=== PATIENT | female | born 1985 | race Caucasian/White ===

== ENCOUNTER 2019-01-05 22:23 | Observation (INO) | payer OTHER ==
[~2019-01-05] VITALS: Ht 167.6 cm; Wt 83.7 kg
--- NOTE | 2019-01-05 22:54 | NUR ---
UA COLLECTED AND SENT TO LAB.
[2019-01-05 23:12] LABS: MICROSCOPIC INDICATED
[2019-01-05 23:13] LABS: BASOPHILS # (AUTO) 0.04 x10^3/uL (0-0.1); BASOPHILS % (AUTO) 0 % (0-1); EOSINOPHILS # (AUTO) 0.04 x10^3/uL (0-0.4); EOSINOPHILS % (AUTO) 0 % (1-7); LYMPHOCYTES # (AUTO) 1.98 x10^3/uL (1-3.4); LYMPHOCYTES % (AUTO) 20 % (22-44); MD NO; MEAN CORPUSCULAR HEMOGLOBIN 29.9 pg (27.0-34.8); MEAN CORPUSCULAR HGB CONC 33.9 g/dL (32.4-35.8); MEAN CORPUSCULAR VOLUME 88.2 fL (80-100); MONOCYTES # (AUTO) 0.74 x10^3/uL (0.2-0.8); MONOCYTES % (AUTO) 7 % (2-9); NEUTROPHILS # (AUTO) 7.19 x10^3/uL (1.8-6.8); NEUTROPHILS % (AUTO) 72 % (42-75); PLATELET COUNT 259 x10^3/uL (130-400); RED BLOOD COUNT 4.26 x10^6/uL (3.82-5.3); RED CELL DISTRIBUTION WIDTH 13.4 % (9.6-15.2)
[2019-01-05 23:25] LABS: ALANINE AMINOTRANSFERASE 45 U/L (12-78); ALBUMIN 3.5 g/dL (3.4-5.0); ANION GAP 3 mmol/L (5-15); CALCIUM 8.3 mg/dL (8.5-10.1); CHLORIDE 108 mmol/L (98-107); CREATININE 0.79 mg/dL (0.55-1.02)
[2019-01-05 23:29] LABS: CULTURE INDICATED? YES
[2019-01-05 23:30] LABS: ALKALINE PHOSPHATASE 96 U/L (45-117); BILIRUBIN,TOTAL 1.4 mg/dL (0.2-1.0); TOTAL PROTEIN 7.3 g/dL (6.4-8.2)
[2019-01-06] MEDS ORDERED: OMNIPAQUE 350 MG/ML, 100ML BOTTLE ONE (00:58)
[2019-01-06] MEDS ORDERED: SODIUM CHLORIDE 0.9% 1,000 ML IV ONE (01:34)
[2019-01-06] MEDS ORDERED: CEFOTETAN PMX 1GM/50ML 50 ML ONE (01:47)
[2019-01-06] MEDS ORDERED: SODIUM CHLORIDE FLUSH 10ML SYR IVF PRN (02:00)
[2019-01-06] MEDS ORDERED: MORPHINE SULFATE 4 MG/ML, 1ML IVPush PRN (02:00)
[2019-01-06] MEDS ORDERED: ONDANSETRON 2MG/ML, 2ML IVPush PRN (02:00)
[2019-01-06] MEDS ORDERED: CEFOTETAN PMX 1GM/50ML 50 ML IV ONE (02:00)
[2019-01-06 02:20] VITALS: BP 109/71
[2019-01-06] MEDS ORDERED: BUPIVACAINE/PF-EPI 0.5% 1:200K ONE (07:21)
[2019-01-06] MEDS ORDERED: FENTANYL PF 100 MCG/2ML ONE ×3 (07:23→08:27)
[2019-01-06] MEDS ORDERED: DEXAMETHASONE 4 MG/ML, 1ML ONE (07:25)
[2019-01-06] MEDS ORDERED: NEOSTIGMINE 1 MG/ML, 10ML ONE (07:59)
[2019-01-06] MEDS ORDERED: CEFAZOLIN 1,000 MG ONE (07:59)
[2019-01-06] MEDS ORDERED: PROPOFOL 10 MG/ML, 20ML ONE (07:59)
[2019-01-06] MEDS ORDERED: ONDANSETRON 2MG/ML, 2ML ONE (07:59)
[2019-01-06] MEDS ORDERED: GLYCOPYRROLATE 0.2MG/1ML, 5ML ONE (07:59)
[2019-01-06] MEDS ORDERED: ROCURONIUM 10MG/ML,5ML ONE (07:59)
[2019-01-06] MEDS ORDERED: SUCCINYLCHOLINE 20 MG/ML, 10ML ONE (07:59)
[2019-01-06] MEDS ORDERED: HALOPERIDOL 5 MG/ML IV PRN (08:00)
[2019-01-06] MEDS ORDERED: LABETALOL 5MG/ML, 20ML IV PRN (08:00)
[2019-01-06] MEDS ORDERED: MEPERIDINE/PF 25MG/0.5ML IVPush PRN (08:00)
[2019-01-06] MEDS ORDERED: HYDROmorphone 2 MG/ML, 1ML IVPush PRN (08:00)
[2019-01-06] MEDS ORDERED: METOPROLOL 1 MG/ML, 5ML IV PRN (08:00)
[2019-01-06] MEDS ORDERED: PROMETHAZINE 25 MG/ML, 1ML IV PRN (08:00)
[2019-01-06] MEDS ORDERED: PROCHLORPERAZINE 5 MG/ML, 2ML IV PRN (08:00)
[2019-01-06] MEDS ORDERED: hydrALAzine 20 MG/ML, 1ML IV PRN (08:00)
[2019-01-06] MEDS ORDERED: OXYcodone 5 MG/5 ML ORAL.SOL UDC PO PRN (08:00)
[2019-01-06] MEDS ORDERED: OXYcodone 5 MG/5 ML ORAL.SOL UDC ONE (08:27)
[2019-01-06] MEDS: FENTANYL PF 100 MCG/2ML IV PRN ×2 (08:30→08:40)
[2019-01-06] MEDS ORDERED: PROMETHAZINE 25 MG/ML, 1ML ONE (08:35)
[2019-01-06 09:42] VITALS: BP 91/58
[2019-01-06] MEDS ORDERED: LACTATED RINGERS 1,000 ML IV SCH (12:30)
[2019-01-06] MEDS ORDERED: HYDROcodone/APAP 5/325 TABLET PO PRN (12:30)
[2019-01-06 12:50] VITALS: BP 100/66
[2019-01-06] MEDS ORDERED: HYDR-3240 PO (14:24)
== END 2019-01-06 14:35 | disposition home or self-care (01) ==
LOC: ED 01-06 01:21 → EDIP 01-06 01:26 → ED 01-06 01:35 → 4NOR 01-06 02:12 → DCLOUNGE 01-06 14:32
PROVIDERS: ADMIT Surgery; ATTEND Surgery
DX: K35.80 Unspecified acute appendicitis (principal)
CPT/HCPCS: 36415; 44970; 74177; 80053; 81001; 83690; 84702; 85025; 87086; 88304; 96365; 99284; G0378; J0330; J0690; J1100; J2405; J2550; J2704; J2710; J3010; J3490; J7030; Q9967